=== PATIENT | male | born 1970 | race Caucasian/White ===

== ENCOUNTER 2020-04-26 11:28 | Emergency (ER) | payer OTHER ==
[~2020-04-26 11:28] MED LIST: ENDOCET 5-3251 EACH PO; ERYTHROMYCIN O3.5 GM OD; LEVOFLOXACIN750 MG PO; MOXIFLOXACIN H400 MG PO; TAMIFLU75 MG PO
[2020-04-26] MEDS ORDERED: DOXYCYCLINE HY100 MG PO (15:43)
[2020-04-26] MEDS ORDERED: OMNICEF 300 MG300 MG PO (15:43)
== END 2020-04-26 15:50 | disposition home or self-care (01) ==
LOC: ER1 11:28
DX: S29.011A Strain of muscle and tendon of front wall of thorax, initial encounter (principal); J18.9 Pneumonia, unspecified organism; C34.91 Malignant neoplasm of unspecified part of right bronchus or lung; C79.31 Secondary malignant neoplasm of brain; E11.9 Type 2 diabetes mellitus without complications; J44.9 Chronic obstructive pulmonary disease, unspecified; F17.200 Nicotine dependence, unspecified, uncomplicated; Z79.899 Other long term (current) drug therapy; X50.1XXA Overexertion from prolonged static or awkward postures, initial encounter; Y92.009 Unspecified place in unspecified non-institutional (private) residence as the place of occurrence of the external cause
CPT/HCPCS: 71101; 99284

== ENCOUNTER 2020-06-21 20:00 | Emergency (ER) | payer OTHER ==
[~2020-06-21 20:00] MED LIST changes: +DOXYCYCLINE HY100 MG PO; +OMNICEF 300 MG300 MG PO
== END 2020-06-21 22:29 | disposition left against medical advice (07) ==
LOC: ER1 20:00
DX: Z53.21 Procedure and treatment not carried out due to patient leaving prior to being seen by health care provider (principal)